=== PATIENT | male | born 1970 | race Caucasian/White ===

== ENCOUNTER 2019-02-12 02:04 | Emergency (ER) | payer SELFPAY ==
[~2019-02-12] VITALS: Ht 180.3 cm; Wt 68.0 kg
[2019-02-12] MEDS ORDERED: PERM60CR12 TP (02:46)
--- NOTE | 2019-02-12 02:46 | PHYS DOC ---
Adult General Chief Complaint Chief Complaint: SKIN PROBLEM HPI HPI Patient is a 48-year-old male who presents with complaint of rash primarily on his arms but also on his trunk that he reports is itching a lot. Patient's significant other had just found out that she had gotten scabies over at her daughter's house. Patient states that the itching has been present for a little over a day now. He states that it is getting worse. Review of Systems Review of Systems Constitutional: Denies fever or chills [] Respiratory: Denies cough or shortness of breath [] Cardiovascular: No additional information not addressed in HPI [] Integument: Complains of rash and itching[] Physical Exam Physical Exam Constitutional: Well developed, well nourished, no acute distress, non-toxic appearance. [] Neck: Normal range of motion, no tenderness, supple, no stridor. [] Cardiovascular: Regular rate and rhythm[] Lungs & Thorax: Bilateral breath sounds clear to auscultation [] Skin: There is an erythematous papular rash with numerous excoriations to the upper extremities and truncal area. [] EKG EKG [] Radiology/Procedures Radiology/Procedures [] Course & Med Decision Making Course & Med Decision Making Pertinent Labs and Imaging studies reviewed. (See chart for details) [] Dragon Disclaimer Dragon Disclaimer This electronic medical record was generated, in whole or in part, using a voice recognition dictation system. Departure Departure Impression: Primary Impression: Scabies Disposition: 01 HOME, SELF-CARE Condition: STABLE Referrals: NO PCP (PCP) Patient Instructions: Scabies Scripts Permethrin (PERMETHRIN) 60 Gm Cream..g. 1 ASHVIN TP ONCE, #60 GM Use as directed per package instructions Prov: JULIAN SHABAZZ Jr. DO 02/12/19 JULIAN SHABAZZ Jr. DO Feb 12, 2019 02:46
== END 2019-02-12 03:25 | disposition home or self-care (01) ==
LOC: ER 02:04
DX: B86 Scabies (principal)
CPT/HCPCS: 99282